=== PATIENT | female | born 1980 ===

== ENCOUNTER → 2023-07-28 | Outpatient (CLI) | payer BC ==
--- NOTE | 2023-07-28 17:55 | Diagnostic Imaging Report ---
CLINICAL INDICATION: Patient with low back pain. EXAM: X-ray of the lumbar spine, 3 views. COMPARISON: None. FINDINGS: There is no acute fracture or dislocation. There is mild left curvature of the lumbar spine. There is mild loss of disk space height at the L5-S1 level. There are small degenerative spurs involving the lower lumbar spine. IMPRESSION: 1: There is no acute fracture or dislocation. 2: There is mild lower lumbar spine degenerative disease and mild left curvature of the lumbar spine. Dictated by: Dictated on workstation # [id number]
== END ==
LOC: RAD FS 15:12
PROVIDERS: ATTEND Family Medicine
DX: M51.36 Other intervertebral disc degeneration, lumbar region (principal)
CPT/HCPCS: 72100